=== PATIENT | female | born 1990 | race Caucasian/White ===

== ENCOUNTER 2018-12-04 02:26 | Emergency (ER) | payer MEDICAID ==
[~2018-12-04] VITALS: Ht 165.1 cm; Wt 61.2 kg
[2018-12-04 03:00] LABS: *BILIRUBIN,URIN NEGATIVE (NEGATIVE); *BLOOD, URINE Trace-intact (NEGATIVE); *CLARITY,URINE CLEAR (CLEAR); *COLOR,URINE YELLOW (YELLOW); *KETONES,URINE NEGATIVE (NEGATIVE); *UROBILINOGEN,URINE 0.2 E.U./dl (NORMAL); LEUKOCYTE ESTERASE ,URINE TRACE (NEGATIVE); NITRITE, URINE NEGATIVE (NEGATIVE); PH,URINE 5.5 (5.0-8.0); UGLUCOSE NEGATIVE (NEGATIVE)
[2018-12-04] MEDS ORDERED: CEFTRIAXONE 500 MG VIAL IM ONE (03:00)
[2018-12-04] MEDS ORDERED: AZITHROMYCIN 250 MG TABLET PO ONE (03:00)
[2018-12-04] MEDS ORDERED: LIDOCAINE HCL 1% 20 ML VIAL ONE (03:01)
[2018-12-04] MEDS ORDERED: AZITHROMYCIN 250 MG TABLET ONE (03:01)
[2018-12-04] MEDS ORDERED: CEFTRIAXONE 500 MG VIAL ONE (03:01)
[2018-12-04 03:07] LABS: *URINE HCG, QUAL NEGATIVE (NEGATIVE)
[2018-12-04 03:20] LABS: BACTERIA,URINE NONE SEEN /HPF (NONE SEEN); RBC,URINE 0-3 /HPF (0-3); SQUAMOUS EPITHELIAL CELL,UR MANY /HPF (NONE SEEN)
--- NOTE | 2018-12-04 03:34 | NUR ---
Patient discharged to home in stable conditon. Written and verbal after care instructions given. Patient verbalizes understanding of instructions.
[2018-12-04 03:36] VITALS: BP 114/72
[2018-12-06 07:09] LABS: *TRIC.VAG. NAA Negative (Negative)
[2018-12-06 11:07] LABS: *GC NAA Negative (Negative)
== END 2018-12-04 03:36 | disposition home or self-care (01) ==
LOC: ER 02:29
DX: Z20.2 Contact with and (suspected) exposure to infections with a predominantly sexual mode of transmission (principal); R10.2 Pelvic and perineal pain; F12.10 Cannabis abuse, uncomplicated; F14.10 Cocaine abuse, uncomplicated
CPT/HCPCS: 81001; 84703; 87491; 96372; 99283; J0696; J3490; A4663; Q0144